=== PATIENT | male | born 1960 | race Caucasian/White ===

== ENCOUNTER 2021-07-25 10:51 | Outpatient (CLI) | payer OTHER, SELFPAY ==
--- NOTE | ~2021-07-25 | MR_ITS ---
EXAMINATION: MR shoulder RT wo con DATE: 07/25/2021 11:42 INDICATION: Acute onset right shoulder pain TECHNIQUE: Magnetic resonance imaging (MRI) of the right shoulder was performed without intravenous c ontrast. Sequences included axial PD-weighted FS FSE, coronal oblique PD-weighted FS FSE, coronal obl ique T2-weighted FS FSE, sagittal PD-weighted FS FSE, and sagittal T1-weighted SE. COMPARISON: None. FINDINGS: Coracoacromial arch: The acromion undersurface is curved in morphology (type II). The coracoacromial ligament is normal. M oderate acromioclavicular osteoarthritis. Rotator cuff: Moderate supraspinatus and mild infraspinatus tendinopathy. Partial-thickness tear along the superior facet footplate of the supraspinatus tendon which extends 1.2 cm AP. A small portion of the tear fabian suring approximately 4 mm AP appears to involve the bursal surface and up to two thirds of the tendon thickness. The remainder of the tear remains intrasubstance involving <1/2 the tendon thickness. The teres minor tendon is normal. Mild subscapularis tendinopathy without discrete tear. Normal rotator cuff muscle bulk and signal. Biceps tendon, glenoid labrum and glenohumeral cartilage: Severe tendinopathy and high-grade partial if not complete tear of the long head biceps tendon. There is degenerative tearing of the superior glenoid labrum including the biceps anchor. This extends fro m the 1:00 position anteriorly to the 10:00 position posteriorly. Partial-thickness cartilage loss wi th smooth chondral surface along the inferomedial aspect of the humeral head and cephalad half of the glenoid. Fluid: Physiologic amount of fluid in the glenohumeral joint and biceps tendon sheath. Mild synovitis and sm all amount of fluid at the deep subscapular recess. No loose osteochondral bodies. Mild increased flu id signal along the subacromial/subdeltoid bursa consistent with minimal bursitis. Bones: Normal marrow signal with no edema, fracture or abnormal marrow replacing process. IMPRESSION: 1. Small mild to moderate severity partial-thickness tear of the distal supraspinatus tendon predomin antly intrasubstance but with small bursal sided component. 2. Mild glenohumeral osteoarthritis with degenerative tearing of the anterosuperior to posterior supe rior glenoid labrum. 3. Severe tendinopathy and high-grade partial if not complete tear of the long head biceps tendon. 4. Moderate acromioclavicular osteoarthritis. Reviewed, dictated and finalized at location A. [employer] IMPRESSION: 1. Small mild to moderate severity partial-thickness tear of the distal suprasp inatus tendon predominantly intrasubstance but with small bursal sided componen t. 2. Mild glenohumeral osteoarthritis with degenerative tearing of the anterosupe rior to posterior superior glenoid labrum. 3. Severe tendinopathy and high-grade partial if not complete tear of the long head biceps tendon. 4. Moderate acromioclavicular osteoarthritis.
== END 2021-07-25 10:52 ==
PROVIDERS: Visit Provider Orthopaedic Surgery
DX: M25.511 Pain in right shoulder (principal); M19.011 Primary osteoarthritis, right shoulder; S43.431A Superior glenoid labrum lesion of right shoulder, initial encounter; M75.81 Other shoulder lesions, right shoulder
CPT/HCPCS: 73221